=== PATIENT | female | born 1965 | race Caucasian/White ===

== ENCOUNTER 2024-07-10 02:48 | Outpatient (CLI) | payer MEDICAID, SELFPAY ==
--- NOTE | 2024-07-10 07:30 | DI.RAD_ITS ---
Exam(s) XR FOOT LT COMPLETE EXAM: XR FOOT LT COMPLETE CLINICAL HISTORY: bilateral bunions,m21.619. TECHNIQUE: 2D digital imaging was performed of the left foot. Three images were obtained. AP, obli que and lateral views were obtained. COMPARISON: No exams were available for comparison FINDINGS: BONES: No acute fracture is present. No bony destructive lesion is seen. JOINTS: No dislocation present. There are marked degenerative changes seen at the 1st MTP joint reva cterized by joint space narrowing and osteophytes. There is a large spur at the dorsal aspect of the head of the 1st metatarsal bone. SOFT TISSUE: Normal. IMPRESSION: Marked degenerative changes seen at the 1st MTP joint. DATA REPOSITORY: RADIATION DOSE DELIVERED:
--- NOTE | 2024-07-10 07:30 | DI.RAD_ITS ---
Exam(s) XR FOOT RT COMPLETE EXAM: XR FOOT RT COMPLETE CLINICAL HISTORY: bilateral bunions,m21.619. TECHNIQUE: 2D digital imaging was performed of the right foot. Three images were obtained. AP, obl ique and lateral views were obtained. COMPARISON: No exams were available for comparison FINDINGS: BONES: No acute fracture is present. No bony destructive lesion is seen. Postsurgical changes are see n at the 5th MTP joint. There is a plantar calcaneal spur. JOINTS: No dislocation present. There are mild degenerative changes seen at the 1st MTP joint. SOFT TISSUE: Normal. IMPRESSION: Mild degenerative changes seen at the 1st MTP joint. DATA REPOSITORY: RADIATION DOSE DELIVERED:
== END 2024-07-10 03:08 ==
PROVIDERS: PCP Internal Medicine; Visit Provider Podiatrist
DX: M21.611 Bunion of right foot (principal); M21.612 Bunion of left foot
CPT/HCPCS: 73630